=== PATIENT | male | born 1945 | race Caucasian/White ===

== ENCOUNTER 2019-09-28 13:31 | Emergency (ER) | payer SELFPAY ==
--- NOTE | 2019-09-28 13:51 | UC ---
Upper Extremity HPI - HPI Summary HPI Summary: Patient is 74 year old gentleman, who present today to the urgent care with left thumb pain for past 3 days. He reports that his left thumb is sore and feels that pain is going up left arm. Thumb is red and slightly swollen. Pt denies any injury He reports that he has had cuts in the thumb in past but not this year. Denies any fevers. He lives in [facility] and is visiting here, came 2 days ago - History of Current Complaint Stated Complaint: SWELLING/PAIN IN LEFT THUMB/ARM Time Seen by Provider: 09/28/19 13:46 Hx Obtained From: Patient - Allergies/Home Medications Allergies/Adverse Reactions: Allergies Allergy/AdvReac Type Severity Reaction Status Date / Time aspirin AdvReac Stomach Verified 09/28/19 13:48 Cramps PMH/Surg Hx/FS Hx/Imm Hx - Additional Past Medical History Additional PMH: Past Medical History : epilepsy, hypothyroidism, GERD, chronic pain, hypertension(his medications include Depakote, Synthroid, and result, MS Contin , propranolol, some additional meds written in [place]) Past Surgical History: Appendectomy Family History : non contributory Social History : Weekly alcohol, non smoker, no drug use. Lives in [facility] and is visiting here Previously Healthy: Yes - Family History Known Family History: Positive: Non-Contributory Review of Systems All Other Systems Reviewed And Are Negative: Yes Constitutional: Positive: Negative Skin: Positive: Other - Redness and swelling involving the left thumb and the hand Eyes: Positive: Negative ENT: Positive: Negative Respiratory: Positive: Negative Cardiovascular: Positive: Negative Gastrointestinal: Positive: Negative Genitourinary: Positive: Negative Motor: Positive: Negative Neurovascular: Positive: Negative Musculoskeletal: Positive: Arthralgia - Left thumb and left wrist Neurological: Positive: Negative Psychological: Positive: Negative Is Patient Immunocompromised?: No Physical Exam - Summary Physical Exam Summary: Vital Signs Reviewed: Yes A+Ox3, no distress Eyes: Conjunctiva Clear ENT: Hearing grossly normal neck: supple Respiratory: Positive: No respiratory distress, No accessory muscle use Cardiovascular: skin color reflect adequate perfusion Neurological: Positive: Alert, ambulatory without difficulty Psychological: Positive: Normal Response To Family Skin: Positive: Redness and swelling noticed along the thumb and proximally into the thenar eminence and the radial aspect of the wrist. No localized swelling, abscess or fluctuation noted. Left thumb: Swelling and redness with limited and painful range of motion at the IP joint, MCP joint. Left wrist with painful range of motion. Triage Information Reviewed: Yes Vital Signs Reviewed: Yes Upper Extremity Course/Dx - Course Course Of Treatment: During the visit today, we discussed the findings and further plan to treat it with antibiotics and prednisone. I will prescribe the medication to the pharmacy. He was put in a thumb spica splint and the boundary of the cellulitic involvement was marked by a skin marker. He is on MS Contin and despite that he is in a lot of pain. Plan to send Vicodin to the pharmacy for pain control . Patient expressed understanding . Advise him to monitor for any worsening which can include increased redness , increase pain or any new symptom or fever, he should go to the ER and advised him to otherwise follow up within 2-3 days either here or at [facility]. he expressed understanding - Differential Dx/Diagnosis Provider Diagnosis: Cellulitis of left thumb Discharge ED - Sign-Out/Discharge Documenting (check all that apply): Patient Departure All imaging exams completed and their final reports reviewed: No Studies - Discharge Plan Condition: Stable Disposition: HOME Prescriptions: Cephalexin CAP* [Keflex CAP*] 500 mg PO TID 10 Days #30 cap Hydrocodone/Acetaminophen [Hydrocodone-Acetamin 5-300 mg] 1 each PO DAILY PRN 7 Days #7 tablet MDD 1 PRN Reason: Pain - Moderate predniSONE [Prednisone 20 MG TAB] 40 mg PO DAILY 5 Days #10 tablet Patient Education Materials: Cellulitis (DC) Referrals: No Primary Care Phys,NOPCP [Primary Care Provider] - [facility] [Outside] - 2 Days Additional Instructions: Please start taking the medication as prescribed to the pharmacy . monitor for any worsening which can include increased redness ,increase pain or any new symptom or fever, you should go to the ER and advised him to otherwise follow up within 2-3 days either here or at [facility]. Patients blood pressure slightly high in Urgent care today , plan follow up with PCP for better control Return to Urgent care / ER if symptoms get worse. - Billing Disposition and Condition Condition: STABLE Disposition: Home
== END 2019-09-28 14:40 | disposition home or self-care (01) ==
LOC: UCCORT 13:31
DX: L03.012 Cellulitis of left finger (principal); E03.9 Hypothyroidism, unspecified; I10 Essential (primary) hypertension; G40.909 Epilepsy, unspecified, not intractable, without status epilepticus; G89.29 Other chronic pain; Z88.6 Allergy status to analgesic agent
CPT/HCPCS: 99203; G0463